=== PATIENT | male | born 1995 | race African-American/Black ===

== ENCOUNTER 2022-08-23 18:29 | Emergency (ER) | payer OTHER ==
[~2022-08-23] VITALS: Ht 170.2 cm; Wt 87.7 kg
[2022-08-23] MEDS ORDERED: ACETAMINOPHEN 325 MG TAB PO ONE (20:20)
[2022-08-23 20:45] VITALS: BP 170/82
[2022-08-23] MEDS ORDERED: IBUP80TA PO (21:02)
[2022-08-23] MEDS ORDERED: METH-1165 PO (21:02)
== END 2022-08-23 21:03 | disposition home or self-care (01) ==
LOC: M ED 18:29 → EDBD 18:29 → CANBEDREQ 19:56 → M ED 21:03
DX: S16.1XXA Strain of muscle, fascia and tendon at neck level, initial encounter (principal); S40.012A Contusion of left shoulder, initial encounter; V49.50XA Passenger injured in collision with unspecified motor vehicles in traffic accident, initial encounter; Y92.410 Unspecified street and highway as the place of occurrence of the external cause; Y93.9 Activity, unspecified; Y99.9 Unspecified external cause status; Z79.899 Other long term (current) drug therapy